=== PATIENT | female | born 1990 | race Caucasian/White ===

== ENCOUNTER 2016-08-14 20:20 | Inpatient (IN) | payer BC, OTHER ==
[~2016-08-14] VITALS: Ht 177.8 cm; Wt 63.5 kg
[2016-08-16 00:55] VITALS: BP 150/98
[2016-08-16] MEDS ORDERED: ONDANSETRON 4 MG/2 ML VIAL IM PRN (01:00)
[2016-08-16] MEDS ORDERED: MAG HYDROX/AL HYDROX/SIMETH 30 ML LIQUID UDC PO PRN (01:00)
[2016-08-16] MEDS ORDERED: DICYCLOMINE HCL 20 MG TABLET PO PRN (01:00)
[2016-08-16] MEDS ORDERED: LOPERAMIDE HCL 2 MG CAPSULE PO PRN ×2 (01:00)
[2016-08-16] MEDS ORDERED: ACETAMINOPHEN 325 MG TABLET PO PRN (01:00)
[2016-08-16] MEDS ORDERED: CLONIDINE HCL 0.1 MG TABLET PO PRN (01:00)
[2016-08-16] MEDS ORDERED: DIAZEPAM 10 MG TABLET PO PRN ×2 (01:00)
[2016-08-16] MEDS ORDERED: diphenhydrAMINE 50 MG CAPSULE PO PRN (01:00)
[2016-08-16] MEDS ORDERED: BUPRENORPHINE HCL 2 MG TAB.SUBL SL PRN (01:00)
[2016-08-16] MEDS ORDERED: MAGNESIUM HYDROXIDE 30 ML LIQUID UDC PO PRN (01:00)
[2016-08-16] MEDS ORDERED: HYDROXYZINE PAMOATE 25 MG CAPSULE PO PRN (01:00)
[2016-08-16] MEDS ORDERED: IBUPROFEN 400 MG TABLET PO PRN (01:00)
[2016-08-16] MEDS ORDERED: METHOCARBAMOL 750 MG TABLET PO PRN (01:00)
[2016-08-16] MEDS ORDERED: ONDANSETRON ODT 4 MG TAB.RAPDIS SL PRN (01:00)
[2016-08-16] MEDS ORDERED: MIRALAX 17 GM POWD.PACK PO PRN (01:00)
[2016-08-16] MEDS ORDERED: DIAZEPAM 5 MG TABLET PO PRN (01:00)
[2016-08-16] MEDS ORDERED: CEPH-570 PO (02:24)
[2016-08-16] MEDS ORDERED: DULO60CA45 PO (02:25)
[2016-08-16] MEDS ORDERED: CETI-231 PO (02:30)
[2016-08-16] MEDS ORDERED: DIPH25TA62 PO (02:30)
[2016-08-16] MEDS ORDERED: LORA10CA PO (02:30)
[2016-08-16 02:54] LABS: *URINE HCG, QUAL NEGATIVE (NEGATIVE)
[2016-08-16 03:03] LABS: *AMPHETAMINE, URINE POSITIVE (NEGATIVE); *BARBITURATE, URINE NEGATIVE (NEGATIVE); *CANNABINOID, URINE POSITIVE (NEGATIVE); *COCCAINE, URINE POSITIVE (NEGATIVE); *OPIATE, URINE POSITIVE (NEGATIVE); *PHENCYCLIDINE SCREEN,URINE NEGATIVE (NEGATIVE)
[2016-08-16 04:05] VITALS: BP 132/71
[2016-08-16] MEDS ORDERED: LORAZEPAM 2 MG/1 ML VIAL IM PRN (05:45)
[2016-08-16 07:26] LABS: ALANINE AMINOTRANSFERASE 26 U/L (14-59); ALBUMIN 3.1 g/dL (3.4-5.0); ALKALINE PHOSPHATASE 64 U/L (50-136); AMYLASE 29 U/L (25-115); ASPARTATE AMINOTRANSFERASE 23 U/L (15-37); BILIRUBIN,TOTAL 0.5 mg/dL (0.2-1.0); CHLORIDE 101 mmol/L (98-107); CREATININE 0.9 mg/dL (0.6-1.3); GFR 75 mL/min (>60); GLUCOSE 110 mg/dL (74-106); LIPASE 112 U/L (73-393); MAGNESIUM 1.7 mg/dL (1.8-2.4); POTASSIUM 3.4 mmol/L (3.5-5.1); SODIUM SERUM 140 mmol/L (136-145); TOTAL PROTEIN, SERUM 7.1 g/dL (6.4-8.2); UREA NITROGEN, BLOOD 5 mg/dL (7-18)
[2016-08-16 07:27] LABS: CARBON DIOXIDE 34 mmol/L (21-32)
[2016-08-16 07:34] LABS: ETHANOL < 3 MG/DL (0-0)
[2016-08-16 07:37] LABS: BASOPHILS % (AUTO) 0.7 % (0.0-2.0); EOSINOPHILS # (AUTO) 0.3 K/uL (0.0-0.7); EOSINOPHILS % (AUTO) 5.7 % (0.0-7.0); HEMATOCRIT 35.2 % (37-47); HEMOGLOBIN 11.8 G/DL (12.0-16.0); LYMPHOCYTES # (AUTO) 1.9 K/UL (0.8-4.8); LYMPHOCYTES % (AUTO) 34.7 % (20.5-51.5); MEAN CORPUSCULAR HEMOGLOBIN 29.4 UUG (27.0-31.0); MEAN CORPUSCULAR HGB CONC 33 g/dL (32.0-37.0); MONOCYTES # (AUTO) 0.4 K/UL (0.1-1.30); MONOCYTES % (AUTO) 6.9 % (0.0-11.0); NEUTROPHILS # (AUTO) 2.9 K/UL (1.8-8.9); PLATELET COUNT (AUTO) 271 K/UL (150-450); RED CELL DISTRIBUTION WIDTH 11.7 % (11.5-14.5); THYROID STIMULATING HORMONE 1.185 mIU/mL (0.358-3.740); WHITE BLOOD COUNT (AUTO) 5.5 K/UL (4.0-11.2)
[2016-08-16 08:00] VITALS: BP 122/77
[2016-08-16 08:09] LABS: HIV-1 p24 ANTIGEN NON REACTIVE (NONREACTIVE); HIV-1/2 ANTIBODY NON REACTIVE (NONREACTIVE)
[2016-08-16] MEDS ORDERED: LORAZEPAM 1 MG TABLET PO PRN ×2 (08:45)
[2016-08-16] MEDS ORDERED: TUBERCULIN,PURIF.PROT.DERIV. 5 TU/0.1 ML TEST ID ONE (09:00)
[2016-08-16] MEDS: MULTIVITAMINS,THERAPEUTIC TABLET PO SCH (09:39)
[2016-08-16] MEDS: FOLIC ACID 1 MG TABLET PO SCH (09:39)
[2016-08-16] MEDS ORDERED: MAGNESIUM OXIDE 400 MG TABLET PO ONE ×2 (11:45→12:00)
[2016-08-16] MEDS ORDERED: POTASSIUM CHLORIDE 20 MEQ TAB.PRT.SR PO ONE ×2 (11:45→12:00)
[2016-08-16 12:00] VITALS: BP 130/84
[2016-08-16] MEDS: CEPHALEXIN MONOHYDRATE 500 MG CAPSULE PO SCH ×3 (12:30→20:47)
[2016-08-16] MEDS: GABAPENTIN 300 MG CAPSULE PO SCH (15:00)
[2016-08-16 16:00] VITALS: BP 127/77
[2016-08-16] MEDS: DULOXETINE 60 MG CAPSULE.DR PO SCH (16:52)
[2016-08-16 20:12] VITALS: BP 131/89
[2016-08-16] MEDS ORDERED: GABAPENTIN 300 MG CAPSULE PO SCH (21:00)
[2016-08-17 00:51] VITALS: BP 119/81
[2016-08-17 04:16] VITALS: BP 123/71
[2016-08-17 07:17] LABS: CALCIUM 9.2 mg/dL (8.5-10.1); CREATININE 0.9 mg/dL (0.6-1.3); MAGNESIUM 1.9 mg/dL (1.8-2.4); POTASSIUM 4.3 mmol/L (3.5-5.1)
[2016-08-17 08:00] VITALS: BP 128/84
[2016-08-17] MEDS: GABAPENTIN 300 MG CAPSULE PO SCH ×3 (08:37→20:35)
[2016-08-17] MEDS: FOLIC ACID 1 MG TABLET PO SCH (08:37)
[2016-08-17] MEDS: MULTIVITAMINS,THERAPEUTIC TABLET PO SCH (08:37)
[2016-08-17] MEDS: CETIRIZINE HCL 10 MG TABLET PO SCH (08:37)
[2016-08-17] MEDS: CEPHALEXIN MONOHYDRATE 500 MG CAPSULE PO SCH ×4 (08:37→20:35)
[2016-08-17] MEDS: LORAZEPAM 1 MG TABLET PO SCH ×4 (08:37→20:35)
[2016-08-17] MEDS: DULOXETINE 60 MG CAPSULE.DR PO SCH (08:37)
[2016-08-17] MEDS: BUPRENORPHINE HCL 2 MG TAB.SUBL SL SCH ×3 (08:56→20:35)
[2016-08-17] MEDS ORDERED: 4 DAY TAPER BUPRENORPHINE -SERENITY PROTOCOL SL PRN (09:00)
[2016-08-17 12:00] VITALS: BP 127/76
[2016-08-17 16:00] VITALS: BP 124/69
[2016-08-17 20:10] VITALS: BP 131/72
[2016-08-17] MEDS: MUPIROCIN 2% OINT 22 GM TUBE NS SCH (20:34)
[2016-08-17] MEDS: MIRTAZAPINE 15 MG TABLET PO SCH (20:35)
[2016-08-18 00:12] VITALS: BP 122/74
[2016-08-18 04:12] VITALS: BP 115/66
[2016-08-18 08:00] VITALS: BP 100/60
[2016-08-18] MEDS: MULTIVITAMINS,THERAPEUTIC TABLET PO SCH (08:49)
[2016-08-18] MEDS: CEPHALEXIN MONOHYDRATE 500 MG CAPSULE PO SCH ×4 (08:49→20:46)
[2016-08-18] MEDS: CETIRIZINE HCL 10 MG TABLET PO SCH (08:49)
[2016-08-18] MEDS: DULOXETINE 60 MG CAPSULE.DR PO SCH (08:49)
[2016-08-18] MEDS: GABAPENTIN 300 MG CAPSULE PO SCH ×3 (08:50→20:47)
[2016-08-18] MEDS: LORAZEPAM 1 MG TABLET PO SCH ×3 (08:50→20:47)
[2016-08-18] MEDS: MUPIROCIN 2% OINT 22 GM TUBE NS SCH ×2 (08:50→20:49)
[2016-08-18] MEDS: FOLIC ACID 1 MG TABLET PO SCH (08:51)
[2016-08-18] MEDS ORDERED: BUPRENORPHINE HCL 2 MG TAB.SUBL SL SCH (09:00)
[2016-08-18 12:00] VITALS: BP 131/87
[2016-08-18] MEDS: GUAIFENESIN/DEXTROMETHORPHAN 5 ML UDC PO PRN (13:23)
[2016-08-18] MEDS: BUPRENORPHINE HCL 2 MG TAB.SUBL SL SCH ×2 (14:54→20:47)
[2016-08-18 16:00] VITALS: BP 100/61
[2016-08-18 20:00] VITALS: BP 116/75
[2016-08-18] MEDS: MIRTAZAPINE 15 MG TABLET PO SCH (20:47)
[2016-08-19] VITALS: BP 111/57
[2016-08-19 04:00] VITALS: BP 108/62
[2016-08-19 08:00] VITALS: BP 100/60
[2016-08-19] MEDS: MULTIVITAMINS,THERAPEUTIC TABLET PO SCH (08:54)
[2016-08-19] MEDS: MUPIROCIN 2% OINT 22 GM TUBE NS SCH ×2 (08:54→20:56)
[2016-08-19] MEDS: LORAZEPAM 1 MG TABLET PO SCH ×2 (08:54→20:54)
[2016-08-19] MEDS: DULOXETINE 30 MG CAPSULE.DR PO SCH (08:54)
[2016-08-19] MEDS: CEPHALEXIN MONOHYDRATE 500 MG CAPSULE PO SCH ×4 (08:55→20:54)
[2016-08-19] MEDS: CETIRIZINE HCL 10 MG TABLET PO SCH (08:55)
[2016-08-19] MEDS: BUPRENORPHINE HCL 2 MG TAB.SUBL SL SCH ×3 (08:55→20:55)
[2016-08-19] MEDS: GABAPENTIN 300 MG CAPSULE PO SCH ×3 (08:55→20:54)
[2016-08-19] MEDS: FOLIC ACID 1 MG TABLET PO SCH (08:55)
[2016-08-19] MEDS ORDERED: DULOXETINE 60 MG CAPSULE.DR PO SCH (09:00)
[2016-08-19 12:00] VITALS: BP 105/65
[2016-08-19] MEDS: GUAIFENESIN/DEXTROMETHORPHAN 5 ML UDC PO PRN ×2 (12:39→21:15)
[2016-08-19 14:13] LABS: HCV AB <0.1 s/co ratio (0.0-0.9); HEPATITIS B CORE AB, IgM Negative (Negative); HEPATITIS B SURFACE AG Negative (Negative)
[2016-08-19 16:00] VITALS: BP 119/73
[2016-08-19 20:00] VITALS: BP 105/66
[2016-08-19] MEDS: MIRTAZAPINE 15 MG TABLET PO SCH (20:55)
[2016-08-20] VITALS: BP 108/66
[2016-08-20 04:00] VITALS: BP 116/71
[2016-08-20 08:00] VITALS: BP 128/69
[2016-08-20] MEDS ORDERED: BUPRENORPHINE HCL 2 MG TAB.SUBL SL SCH (09:00)
[2016-08-20] MEDS: CETIRIZINE HCL 10 MG TABLET PO SCH (09:15)
[2016-08-20] MEDS: FOLIC ACID 1 MG TABLET PO SCH (09:15)
[2016-08-20] MEDS: CEPHALEXIN MONOHYDRATE 500 MG CAPSULE PO SCH ×3 (09:15→17:28)
[2016-08-20] MEDS: GABAPENTIN 300 MG CAPSULE PO SCH ×3 (09:15→21:15)
[2016-08-20] MEDS: DULOXETINE 30 MG CAPSULE.DR PO SCH (09:15)
[2016-08-20] MEDS: MULTIVITAMINS,THERAPEUTIC TABLET PO SCH (09:15)
[2016-08-20] MEDS: MUPIROCIN 2% OINT 22 GM TUBE NS SCH ×2 (09:16→21:15)
[2016-08-20 12:00] VITALS: BP 114/72
[2016-08-20] MEDS: GUAIFENESIN/DEXTROMETHORPHAN 5 ML UDC PO PRN ×2 (14:13→21:21)
[2016-08-20 15:35] LABS: *AMPHETAMINE, URINE NEGATIVE (NEGATIVE); *BARBITURATE, URINE NEGATIVE (NEGATIVE); *CANNABINOID, URINE POSITIVE (NEGATIVE); *COCCAINE, URINE NEGATIVE (NEGATIVE); *OPIATE, URINE NEGATIVE (NEGATIVE); *PHENCYCLIDINE SCREEN,URINE NEGATIVE (NEGATIVE)
[2016-08-20 16:00] VITALS: BP 119/78
[2016-08-20 20:14] VITALS: BP 103/53
[2016-08-20] MEDS: MIRTAZAPINE 15 MG TABLET PO SCH (21:15)
[2016-08-20] MEDS ORDERED: HYDR-3895 PO (21:35)
[2016-08-20] MEDS ORDERED: Ibuprofen PO (21:35)
[2016-08-20] MEDS ORDERED: DICY20TA28 PO (21:35)
[2016-08-20] MEDS ORDERED: Gabapentin PO ×2 (21:35)
[2016-08-20] MEDS ORDERED: METH-33 PO (21:35)
[2016-08-21 00:12] VITALS: BP 116/74
[2016-08-21 04:35] VITALS: BP 107/67
[2016-08-21 08:00] VITALS: BP 133/92
[2016-08-21] MEDS: FOLIC ACID 1 MG TABLET PO SCH (08:51)
[2016-08-21] MEDS: MULTIVITAMINS,THERAPEUTIC TABLET PO SCH (08:51)
[2016-08-21] MEDS: DULOXETINE 30 MG CAPSULE.DR PO SCH (08:51)
[2016-08-21] MEDS: GABAPENTIN 300 MG CAPSULE PO SCH (08:52)
[2016-08-21] MEDS: MUPIROCIN 2% OINT 22 GM TUBE NS SCH (08:52)
[2016-08-21] MEDS: CETIRIZINE HCL 10 MG TABLET PO SCH (08:52)
== END 2016-08-21 09:43 | disposition other institution (70) | DRG 895 ==
LOC: SRC 08-15 22:56
PROVIDERS: ADMIT Internal Medicine; ATTEND Internal Medicine
PROC: HZ2ZZZZ Detoxification Services for Substance Abuse Treatment (ICD-10-PCS; principal; 2016-08-15)
PROC: HZ51ZZZ Individual Psychotherapy for Substance Abuse Treatment, Behavioral (ICD-10-PCS; 2016-08-16)
PROC: HZ41ZZZ Group Counseling for Substance Abuse Treatment, Behavioral (ICD-10-PCS; 2016-08-17)
DX: F11.23 Opioid dependence with withdrawal (principal); F33.1 Major depressive disorder, recurrent, moderate; E87.3 Alkalosis; F14.10 Cocaine abuse, uncomplicated; Z22.322 Carrier or suspected carrier of Methicillin resistant Staphylococcus aureus; F12.20 Cannabis dependence, uncomplicated; D64.9 Anemia, unspecified; E87.6 Hypokalemia; E83.42 Hypomagnesemia; R05 Cough; F15.10 Other stimulant abuse, uncomplicated; F13.230 Sedative, hypnotic or anxiolytic dependence with withdrawal, uncomplicated; F17.210 Nicotine dependence, cigarettes, uncomplicated; L08.9 Local infection of the skin and subcutaneous tissue, unspecified; F41.9 Anxiety disorder, unspecified; E86.9 Volume depletion, unspecified
CPT/HCPCS: 36415; 70030-TC; 71010; 80307; 80324; 80346; 80349; 80353; 80361; 83550; 83690; 83735; 84443; 84703; 85025; 86580; 86592; 86705; 86803; 87340; 87806; A4663; G6040-TC